=== PATIENT | female | born 1950 | race Two or more races ===

== ENCOUNTER 2018-03-31 07:08 | Emergency (ER) | payer MEDICARE, MEDICAID ==
[~2018-03-31] VITALS: Ht 162.6 cm; Wt 65.8 kg
[2018-03-31] MEDS ORDERED: SODIUM CHLORIDE 0.9% 1,000 ML IV ONE (08:04)
[2018-03-31] MEDS ORDERED: KETOROLAC TROMETH 30 MG/ML 1ML VIAL IV ONE (08:15)
[2018-03-31] MEDS ORDERED: PROMETHAZINE HCL 25 MG/ML 1ML IV PRN (08:15)
[2018-03-31 08:30] LABS: Basophils # (auto) 0 uL; Basophils % (auto) 1.1 % (0.0-2.0); Eosinophils # (auto) 0.1 uL; Mean Corpuscular Hemoglobin 27.2 pg (28.0-32.0); Monocytes # (auto) 0.4 uL; Neutrophils # (auto) 2.5 uL
[2018-03-31 08:32] LABS: Eosinophils % (auto) 1.4 % (0.0-7.0); Lymphocytes % (auto) 24.6 % (10.0-50.0); Mean Corpuscular Hgb Conc. 33.5 g/dL (32.0-36.0); Mean Corpuscular Volume 81.3 fL (80.0-100.0); Monocytes % (auto) 10.6 % (0.0-12.0); Neutrophils % (auto) 62.3 % (37.0-80.0); Platelet Count (auto) 62 10^3/uL (140-450); Red Blood Cells 4.79 10^6/uL (4.0-5.20); White Blood Cell 3.9 10^3/uL (4.4-10.8)
[2018-03-31 08:37] LABS: Alanine Aminotransferase 35 U/L (13-56); Albumin 3.2 g/dL (3.4-5.0); Alkaline Phosphatase 142 U/L (45-117); Anion Gap 1 (5-15); Aspartate Aminotransferase 35 U/L (15-37); BUN/Creatinine Ratio 18.6; Bilirubin, Total 0.5 mg/dL (0.2-1.0); Blood Urea Nitrogen 13 mg/dL (7-18); Calcium 8.2 mg/dL (8.5-10.1); Carbon Dioxide 31 mmol/L (21-32); Chloride 107 mmol/L (98-107); GFR African American 108 mL/min; GFR Non-African American 89 mL/min; Glucose 214 mg/dL (74-106); Magnesium 2.3 mg/dL (1.6-2.6); Sodium 139 mmol/L (136-145); Total Protein 7.5 g/dL (6.4-8.2)
[2018-03-31 08:54] LABS: Urine Bacteria NONE SEEN /hpf (None Seen); Urine Blood Negative /uL (Negative); Urine Specific Gravity 1.022 (1.001-1.035); Urine WBC 1 /hpf (0 - 5)
[2018-03-31] MEDS ORDERED: LORazepam 2MG/ML-1ML VIAL IV ONE (11:15)
[2018-03-31 12:30] VITALS: BP 162/90
== END 2018-03-31 12:42 | disposition home or self-care (01) ==
LOC: ER 07:08
DX: K42.9 Umbilical hernia without obstruction or gangrene (principal); R16.1 Splenomegaly, not elsewhere classified; E11.65 Type 2 diabetes mellitus with hyperglycemia; F17.210 Nicotine dependence, cigarettes, uncomplicated; Z90.49 Acquired absence of other specified parts of digestive tract; Z90.710 Acquired absence of both cervix and uterus
CPT/HCPCS: 36415; 74176; 80053; 81001; 83690; 83735; 84484; 85025; 96361; 96374; 96375; 99285; J1885; J2060; J2550; 93005